=== PATIENT | male | born 1950 | race Caucasian/White ===

== ENCOUNTER → 2018-09-09 16:06 | Outpatient (CLI) | payer OTHER, MEDICARE, SELFPAY ==
[2018-09-09 16:47] LABS: Add Manual Diff / Slide Review NO; Basophils Percent Auto 0.6 % (0-2); Eosinophils Percent Auto 3.3 % (2-4); Hemoglobin 13.8 g/dL (13.5-17.5); Lymphocytes Percent Auto 31.3 % (25-40); Mean Corpuscular HGB Conc 33.7 % (30-36); Mean Corpuscular Hemoglobin 33.1 PG (26-34); Mean Corpuscular Volume 98.2 fL (80-100); Monocytes Percent Auto 6.4 % (3-14); Neutrophils Absolute Auto 3900 /uL (1500-7000); Neutrophils Percent Auto 58.4 % (50-75); Platelet Count 258 X10^3/uL (150-400); Red Blood Cell Count 4.17 X10^6/uL (4.5-5.9); Red Cell Distribution Width 12.6 % (11.6-14.8); White Blood Cell Count 6.7 X10^3/uL (4.5-11.0)
[2018-09-09 17:20] LABS: Blood Urea Nitrogen 21 mg/dL (9-20); Calcium 9.5 mg/dL (8.4-10.2); Carbon Dioxide 27 mmol/L (22-32); Chloride 103 mmol/L (98-107); Estimated Glomerular Filt Rate 50.4 mL/min (>60); Glucose 92 mg/dL (80-110); HEMOLYSIS < 15 (0-50); Potassium 4.6 mmol/L (3.4-5.1); Sodium 141 mmol/L (137-145)
== END ==
PROVIDERS: Visit Provider Orthopaedic Surgery
DX: Z01.812 Encounter for preprocedural laboratory examination (principal); Z01.818 Encounter for other preprocedural examination
CPT/HCPCS: 36415; 80048; 85025; 93005

== ENCOUNTER 2018-09-26 06:11 | Inpatient (IN) | payer OTHER, MEDICARE, SELFPAY ==
[2018-09-20 13:38] VITALS: BMI 26.4
[2018-09-26] VITALS (21 sets, daily range): BP systolic 111–181; BP diastolic 67–106; PULSE 68–93; RESP 13–20; TEMP 35.6–36.8; O2SAT 93–98; BMI 26.4
--- NOTE | 2018-09-26 | DI.RAD.S_ITS ---
PROCEDURE: XR PELVIS 1-2V INDICATIONS: post-op DELMAR TECHNIQUE: 1 view of the lower pelvis acquired. COMPARISON: None. FINDINGS: Bones: Patient is status post left hip arthroplasty, with hardware components in expected positions. The hip joint appears congruent. The visualized bony structures appear intact. Soft tissues: Overlying postoperative changes are noted. No suspicious soft tissue densities. IMPRESSION: Normal alignment after left total hip arthroplasty. Dictated by: Blaise Dc M.D. on 09/26/2018 at 11:39 Approved by: Blaise Dc M.D. on 09/26/2018 at 11:39
[2018-09-26] MEDS: LACTATED RINGERS 1,000 ML 42 ML IV ×2 (06:45→10:03)
[2018-09-26] MEDS: ACETAMINOPHEN 325 MG TABLET 975 MG PO (07:03)
[2018-09-26] MEDS: CELECOXIB 200 MG CAPSULE PO (07:04)
[2018-09-26] MEDS: PREGABALIN 75 MG CAPSULE PO (07:04)
[2018-09-26] MEDS: CEFAZOLIN 2 GM/100 ML FROZ.PIGGY IV ×2 (07:40→16:28)
--- NOTE | 2018-09-26 07:44 | PM.PREOP ---
Pre-operative Note Interval Note History & Physical reviewed/Exam performed by Physician: Yes Changes to H&P: No
[2018-09-26] MEDS: TRANEXAMIC ACID 1,000 MG VIAL 2000 MG INJ (08:15)
[2018-09-26] MEDS: BUPIVACAINE 0.25% W/ EPI VIAL 50 ML INJ (08:20)
--- NOTE | 2018-09-26 08:25 | SUR.OPER ---
Lateral on padded OR bed. Gel axillary roll. Arms secured on padded armboard with pillow supporting top arm. Padded hip positioner braces x4 - anterior and posterior chest and pelvis. Additional gel pad used anterior pelvis. Gel pad under bottom leg from knee to foot and secured with tape over sheet.
--- NOTE | 2018-09-26 09:31 | PM.OP.1 ---
Operative Date/Time/Diagnoses Date of procedure: 09/26/18 Time of procedure: 09:31 Pre-op diagnosis: Left hip degenerative joint disease Post-op diagnosis: same Procedure & Clinicians Procedure: Left total hip arthroplasty (CPT code 51811 with assistant property manager) Same procedure as scheduled: Yes Indications: Patient is an 68-year-old male with severe left hip DJD. The patient has pain with activities and at rest, limited ambulation and activity tolerance, difficulties with ADLs, and failure of conservative treatment. We have discussed the nature of condition, treatment options, risks and benefits, and patient elects to proceed with total hip arthroplasty and gives informed consent. Surgeon: Stephen Lindsay Floor Technician: Jon De La Torre Anesthesia Type: General and Spinal Operative Notes Closure Type: primary Specimen(s): none sent Implants & Drains: Acetabulum: Pichardo [employer] Nephew R3 acetabular component size 54 mm Femoral component: Pich[employer]hew Anthology stem size 8 with high offset Femoral head: 36 mm + 4 Oxinium Estimated Blood Loss (mL): 150 Blood products transfused: none Procedure in detail: After satisfaction induction of anesthetic, and administration of IV antibiotics, the patient was positioned in the lateral decubitus position with all bony prominences well padded and pelvic position secured using a hip lead software development engineer positioning device. Left hip and lower extremity prepped and draped in the usual sterile fashion, 1st dose of intravenous tranexamic acid was administered, then a longitudinal incision was created centered over the greater trochanter and carried sharply through the skin and subcutaneous tissues down to the fascia cindy which was divided longitudinally and retracted with a Charnley retractor. External rotators visualize, cut, tagged, and retracted posteriorly, then the capsule was cut in a T-type fashion with the corners tagged and retracted. Hip was dislocated and femoral neck cut made according to preoperative templating. Acetabular retractors then placed, and the acetabular labrum and osteophytes were excised. The acetabulum was then sequentially reamed to 53 mm with an excellent circumferential ream and fit with the trial. The trial component was removed and a permanent size 54 mm Pichardo [employer] Nephew R3 acetabular component was selected, positioned, and impacted with satisfactory position and fixation achieved. Permanent liner was then inserted with the elevated lip directed posteriorly. Soft tissue then removed off the lateral femoral neck in the lateral neck was entered using a box osteotome. T-handled reamers placed down the canal followed by sequential broaching to 8 with the final broach left in place for trial reduction which demonstrated very good leg length, range of motion, and stability characteristics with a 36 mm +0 trial ball. Another trial was performed with a +4 ball which yielded excellent stability characteristics. The trial and broach were removed, and a permanent size 8 high offset Pichardo [employer] Nephew Anthology stem was selected and inserted with excellent position and fixation achieved. Another trial reduction yielded the above characteristics so the trial ball was exchanged for a permanent 36 mm + 4 Oxinium ball. The hip was irrigated and reduced and excellent leg length range of motion and stability characteristics were achieved and maintained. Periarticular tissues were infiltrated with Marcaine. The hip was copiously irrigated, and the capsule repaired with #2 Ethibond, and the piriformis was repaired back to the greater trochanter with the same. Fascia cindy closed with interrupted #1 Ethibond sutures, and the subcutaneous tissues were closed in 2 layers of 0 Vicryl and 2 0 Vicryl. Skin was closed with tiffanie and sterile dressings applied. Second dose of tranexamic acid was administered intravenously, and the anesthetic was terminated. Complications: none Condition: stable Disposition: PACU Plan for aftercare: Patient will be admitted to the acute care [facility], and anticipate discharge on postop day 1 with follow-up in office in 10-14 days. Outpatient physical therapy will be arranged and patient will continue to observe posterior hip precautions. Patient will continue use of postoperative Lovenox for 10 days postop.
--- NOTE | 2018-09-26 09:34 | P.OP_ITS ---
Operative Date/Time/Diagnoses Date of procedure: 09/26/18 Time of procedure: 09:31 Pre-op diagnosis: Left hip degenerative joint disease Post-op diagnosis: same Procedure & Clinicians Procedure: Left total hip arthroplasty (CPT code 43858 with surgical first assistant) Same procedure as scheduled: Yes Indications: Patient is an 68-year-old male with severe left hip DJD. The patient has pain with activities and at rest, limited ambulation and activity tolerance, difficulties with ADLs, and failure of conservative treatment. We have discussed the nature of condition, treatment options, risks and benefits, and patient elects to proceed with total hip arthroplasty and gives informed consent. Surgeon: Stephen Lindsay Chief Operating Engineer: Jon De La Torre Anesthesia Type: General and Spinal Operative Notes Closure Type: primary Specimen(s): none sent Implants & Drains: Acetabulum: Pichardo [employer] Nephew R3 acetabular component size 54 mm Femoral component: Pichardo [employer] Nephew Anthology stem size 8 with high offset Femoral head: 36 mm + 4 Oxinium Estimated Blood Loss (mL): 150 Blood products transfused: none Procedure in detail: After satisfaction induction of anesthetic, and administration of IV antibiotics, the patient was positioned in the lateral decubitus position with all bony prominences well padded and pelvic position secured using a hip scheduling assistant positioning device. Left hip and lower extremity prepped and draped in the usual sterile fashion, 1st dose of intravenous tranexamic acid was administered, then a longitudinal incision was created centered over the greater trochanter and carried sharply through the skin and subcutaneous tissues down to the fascia cindy which was divided longitudinally and retracted with a Charnley retractor. External rotators visualize, cut, tagged, and retracted posteriorly, then the capsule was cut in a T-type fashion with the corners tagged and retracted. Hip was dislocated and femoral neck cut made according to preoperative templating. Acetabular retractors then placed, and the acetabular labrum and osteophytes were excised. The acetabulum was then sequentially reamed to 53 mm with an excellent circumferential ream and fit with the trial. The trial component was removed and a permanent size 54 mm Pichardo and Nephew R3 acetabular component was selected, positioned, and impacted with satisfactory position and fixation achieved. Permanent liner was then inserted with the elevated lip directed posteriorly. Soft tissue then removed off the lateral femoral neck in the lateral neck was entered using a box osteotome. T-handled reamers placed down the canal followed by sequential broaching to 8 with the final broach left in place for trial reduction which demonstrated very good leg length, range of motion, and stability characteristics with a 36 mm +0 trial ball. Another trial was performed with a + 4 ball which yielded excellent stability characteristics. The trial and broach were removed, and a permanent size 8 high offset Pichardo [employer] Nephew Anthology stem was selected and inserted with excellent position and fixation achieved. Another trial reduction yielded the above characteristics so the trial ball was exchanged for a permanent 36 mm + 4 Oxinium ball. The hip was irrigated and reduced and excellent leg length range of motion and stability characteristics were achieved and maintained. Periarticular tissues were infiltrated with Marcaine. The hip was copiously irrigated, and the capsule repaired with #2 Ethibond, and the piriformis was repaired back to the greater trochanter with the same. Fascia cindy closed with interrupted #1 Ethibond sutures, and the subcutaneous tissues were closed in 2 layers of 0 Vicryl and 2 0 Vicryl. Skin was closed with tiffanie and sterile dressings applied. Second dose of tranexamic acid was administered intravenously, and the anesthetic was terminated. Complications: none Condition: stable Disposition: PACU Plan for aftercare: Patient will be admitted to the acute care perze, and anticipate discharge on postop day 1 with follow-up in office in 10-14 days. Outpatient physical therapy will be arranged and patient will continue to observe posterior hip precautions. Patient will continue use of postoperative Lovenox for 10 days postop.
[2018-09-26] MEDS: LACTATED RINGERS 1,000 ML 125 ML IV (11:04)
--- NOTE | 2018-09-26 11:22 | PC.NURSE ---
Addendum entered by Amanda Lopez R.N. 09/26/18 14:59: BP has been running hypertensive. Notified Dr Lindsay, we will monitor unless above 160/110. Original Note: Admit Arrived to room @ 1030, Oriented Pt and to room and call light system. Discussed POC and pain management goals. Snacking without nausea. IVf infusing and dressing to L hip CDI with ice in place. Able to wiggle toes, not lift off of bed, better as time goes on
[2018-09-26] MEDS: ONDANSETRON 4 MG ODT PO (16:15)
--- NOTE | 2018-09-26 17:57 | PC.NURSE ---
Post-op note: Flavio ambulated with PT in hallway and in room, sat in recliner for meal. Reported some nausea after ambulating, SL Zofran given. Voided in BR toilet unmeasured. After meal he reported nausea returned & he had 150 ml emesis. Able to void 100 ml urine, then assisted back into bed. Abdomen distended, bladder scan = >999 ml. Due to large amt of urine in bladder. Standing order written for straight cath, but because straight cath kit only has 1000ml collection bag, I placed brandon catheter with 2000 ml bag. Pt tolerated procedure well. >1250 immediate dilute yellow urine return in collection bag & still draining. Will leave in place at this point. Pt reports he did not feel urge to void but said I don't feel anymore. I talked to & his about catheter & orders, they agreed we should leave brandon in place until spinal resolves as patient had no feeling of needing to urinate when his bladder was full. Supportive visiting, now gone, saying she would return in the AM.
--- NOTE | 2018-09-26 18:35 | PT.IIE ---
Current Diagnoses Unilateral primary osteoarthritis, left hip (09/26/18) Surgery Performed Operation Date: 09/26/18 07:45 Actual Procedures p Total Hip Arthroplasty(Left) - Stephen Lindsay MD Surgical History (Last Updated 09/20/18 @ 14:12 by Paige Bob RN) H/O vasectomy (Acute) Status post Mohs surgery (Acute) Medical History (Last Updated 09/20/18 @ 14:12 by Paige Bob RN) Achilles rupture, left (Acute) Arthritis (Acute) Failed tendon repair (Acute) Skin cancer (Acute ~2015) Tibia/fibula fracture (Acute) Physical Therapy Inpatient Evaluation/Re-Eval M1 PT/OT-IP Prior Functional Status Start: 09/26/18 18:14 Freq: NEEDED Status: Active Protocol: Document 09/26/18 15:15 (Rec: 09/26/18 18:34 [id number]) Medical Review Prior Functional Status Medical History Reviewed Yes Communication No deficits noted Mobility and Gait Pt is an independent ambulator at home and community without using AD Activities of Daily Living and IADL's Pt is independent for all ADLs and IADLs without using AD. Social History Household Members spouse Living Arrangements House Number of Floors (Floors) Two Floors Number of Stairs To Enter/Railing? 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 Pt will primarily stay on the main floor but the walk in shower is located on the 2nd floor only. 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 Pt is still working and he states it's a sedentary job and he drives everyday. Pt expects to return to work once he is medically stable . He wants to cont his post op rehab at a outpatient clinic in [place]. M2 PT-IP Current Condition Start: 09/26/18 18:14 Freq: NEEDED Status: Active Protocol: Document 09/26/18 15:15 (Rec: 09/26/18 18:34 [id number]) Physical Therapy Current Condition Current Condition Evaluation Date 09/26/18 Treatment Diagnosis L DELMAR post approach, difficulty in walking, generalized muscle weakness Onset Date 09/26/18 Precautions Posterior Hip Precautions No Hip Flexion > 90 degrees No Hip Internal Rotation No Hip Adduction Weight Bearing Status Weight Bearing Status Weight Bear as Tolerated M3 PT-IP Subjective Start: 09/26/18 18:14 Freq: NEEDED Status: Active Protocol: Document 09/26/18 15:15 (Rec: 09/26/18 18:34 [id number]) Subjective Physical Therapy Visit Type Type Initial Evaluation Visit Start Time 15:15 Visit Stop Time 15:45 Total Visit Minutes 30 Notes Pt agreeable to mobilize with PT. Denies pain. Number of POCKET CLOSER Visits 0 Physical Therapy Visit Comments Patient Comments I dont have any pain at all. Patient Goals To return home with his to return to work once medically stable Therapy Pain Assessment Pain Present Pain Present Denied Pain M4 PT-IP Mobility and Gait Start: 09/26/18 18:14 Freq: NEEDED Status: Active Protocol: Document 09/26/18 15:15 (Rec: 09/26/18 18:34 [id number]) PT-Bed Mobility Assessment Supine to Sit Supine to Sit Standby Assistance Head of Bed Elevated Bedrails Sit to Supine Sit to Supine Standby Assistance Bedrails Scooting Scooting to Edge of Bed Standby Assistance Scooting Up and Down in Bed Standby Assistance PT-Transfer Assessment Sit to and From Stand Sit to and from Stand Standby Assistance 1 Person Assistance Use of Upper Extremities Equipment Transfer Assistive Device Gait Belt Front Wheeled Walker Transfers Transfer Destination Bed Chair Toilet Transfer Technique Stand Step Pivot Transfer Ability Level of Assist Standby Assistance Comments Mobility Comments Pt education on post op post hip precautions. Pt performed very well on overall bed mobility and transfer activities with SBA 1 pa and FWW. Pt did not show signs of LOB and acute distress. He was able to use proper hand and feet placements on FWW and surface for sit <>stand activities. Gait Assessment Gait Gait Assistance Required: Standby Assistance 1 Person Assist Distance (Feet) 100 Able to Maintain Weight Bearing Status Yes During Gait Assistive Devices Assistive Device Gait Belt Front Wheeled Walker Gait Deviations General Gait Pattern Antalgic Decreased Stride Length Decreased Feet Clearance Step-to Gait Factors Limiting Gait Function Factors Limiting Gait Function Decreased Activity Tolerance Decreased Strength Limited Range of Motion Pain Comments Gait Comments Pt began to amb with step to pattern with FWW SBA. He then amb with step through pattern after 20 feet. Pt amb from EOB to hallway and back bedside chair with SBA FWW. Pt demonstrated very slight antalgic gait since he is aware of his WBAT status and previous pre op PT. Pt presents steady gait and no signs of LOB and acute distress. Stair Climbing Assessment Evaluation Level of Assist On Stairs Contact Guard Assistance Devices Stair Climbing Assistive Devices Left Railing Right Railing Technique/Endurance Stair Climbing Direction Ascend and Descend Stair Climbing Technique Step to Step Number of Steps Climbed 3 Query Text: Stair Climbing Set # Repetitions (reps) 2 Comments Stair Climbing Comments Pt education on step to pattern with going up with good side and down with injured side. Pt demonstrated good understanding and safe step to pattern with B rails. no signs of LOB. PT-Balance Assessment Sitting Balance and Reactions Static Sitting Balance Ability Normal Dynamic Sitting Balance Ability Normal Standing Balance and Reactions Static Standing Balance Ability Good Dynamic Standing Balance Ability Good M5 PT-IP Objective Assessments Start: 09/26/18 18:14 Freq: NEEDED Status: Active Protocol: Document 09/26/18 15:15 (Rec: 09/26/18 18:34 [id number]) Orientation Orientation/Cognition Level of Alertness Alert Orientation Name Age Birthday Month Date Year Day of Week Place Situation Language Function Ability No Deficits Noted Safety Awareness Understands Safety Issues Memory Description No Deficits Noted Gross Range of Motion Upper Extremity ROM Assessment Within Functional Limits Lower Extremity ROM Assessment Left Impaired Strength Upper Extremity Strength Assessment Within Functional Limits Lower Extremity Strength Assessment Left Impaired Comments Strength Comments 4/5 grossly on LLE MMT Coordination Assessment Gross Coordination Gross Coordination WNL Sensation Assessment Sensation Gross Sensation WNL M6 PT-IP Treatment Start: 09/26/18 18:14 Freq: NEEDED Status: Active Protocol: Document 09/26/18 15:15 (Rec: 09/26/18 18:34 [id number]) Physical Therapy Treatment Exercises Exercises Ankle Pumps Gluteal Sets Quad Sets Heel Slides Education Education Provided Precautions Weight Bearing Status Post-Op Packet Safety M7 PT-IP Assessment and Plan Start: 09/26/18 18:14 Freq: NEEDED Status: Active Protocol: Document 09/26/18 15:15 (Rec: 09/26/18 18:34 [id number]) PT Summary Assessment and Plan Potential Rehabilitation Potential Excellent Status of Condition at Evaluation Stable Summary Impairments Pain ROM Strength Transfers Gait Activity Tolerance Assessment Summary Pt is a very pleasant 68 yo male s/p L DELMAR post approach post op day 1. Pt demonstrates a very good understanding of overall hip precautions and safe transfer techniques. Pt is able to climb stair 3 steps x 2 sets and amb >100 feet with FWW SBA today. Pt denies pain during session. However, pt has to be able to negotiate 14 steps prior to d/c home due to walk in shower located on 2nd floor. Goals Bed Mobility Goal Independent Transfer Goal Independent Front Wheeled Walker Gait Goal Independent Front Wheel Walker Gait Distance 200 Other Goals stair climbing 14 steps in total independently with B rails Days to Meet Goals 3 Frequency of Treatment Frequency Of Treatment Twice a Day Treatment Plan Physical Therapy Treatment Plan Bed Mobility Training Transfer Training Gait Training Therapeutic Exercise Balance Retraining Post Op Education Discharge Planning Hot or Cold Pack Other Recommendations and Next Treatment transfer, gait and stair Focus training as nura review precautions Recommendations To Nursing Amount of Assist Needed Standby Assistance 1 Person Assist Discharge Recommendations PT Discharge Recommendations Home Outpatient PT
[2018-09-26] MEDS: METOCLOPRAMIDE 10 MG/2 ML INJ IV (20:49)
[2018-09-27] MEDS: CEFAZOLIN 2 GM/100 ML FROZ.PIGGY IV (00:16)
--- NOTE | 2018-09-27 00:42 | PC.NURSE ---
Automatic Buffer Note: 0015: Awake, resting in bed. Pt states he has 0/10 pain at this time. IV in place in rt hand. Mcfarland catheter patent, with clear jeff urine. Bulky dressing to lt hip is cdi. Pt declines SCDs. He requests a break from ice to lt hip. Pt doing ankle waving.
[2018-09-27 03:25] VITALS: BP 142/73; PULSE 75; RESP 16; TEMP 36.5; O2SAT 96
--- NOTE | 2018-09-27 06:08 | PC.NURSE ---
Pt reports no pain. Mcfarland catheter removed at 0600 with no issues
[2018-09-27 06:38] LABS: Hematocrit 36.3 % (41-53); Hemoglobin 12.5 g/dL (13.5-17.5)
[2018-09-27 07:35] VITALS: BP 143/95; PULSE 86; RESP 16; O2SAT 93
[2018-09-27] MEDS: ACETAMINOPHEN 325 MG TABLET 975 MG PO (08:04)
--- NOTE | 2018-09-27 08:06 | PM.DS.1 ---
History of Present Illness Date Patient Seen: 09/27/18 Time Patient Seen: 08:06 Chief complaint: left hip [id number] Narrative: Patient is an 68-year-old male with severe left hip DJD. The patient has pain with activities and at rest, limited ambulation and activity tolerance, difficulties with ADLs, and failure of conservative treatment. We have discussed the nature of condition, treatment options, risks and benefits, and patient elects to proceed with total hip arthroplasty and gives informed consent. Discharge Providers Date of admission: 09/26/18 06:11 Primary care physician: Frankie Melendez MD Consults: 09/26/18 10:52 Consult to Discharge Planning Routine Comment: Consult to Physical Therapy Evaluate & Treat Comment: Physician Instructions: post op DELMAR protocol Consult to Respiratory Therapy Evaluate & Treat Comment: Physician Instructions: Evaluate and treat 09/26/18 11:45 Consult to Pastoral Services Routine Comment: pre op requested. thank you Discharge provider: Kimberly Snell PA-C Discharge Date: 09/27/18 Summary Discharge Diagnosis: s/p left total hip arthroplasty Hospital Course: Flavio admitted for left total hip arthroplasty with Dr. Lindsay, and he consented to procedure. On POD #1 patient was ready for DC home. He was eating and voiding without difficulty or assistance. He has been up ambulating with PT. He has outpatient therapy scheduled. He has his home medications. Status at Discharge Functional status at discharge: uses cane/walker Exam Vital Signs (past 8 hours): - 09/27/18 03:25 Temperature 97.7 F Pulse Rate 75 Respiratory Rate 16 Blood Pressure 142/73 H Pulse Oximetry 96 Oxygen Delivery Method Room Air Narrative Exam Narrative: Patient lying in bed in NAD. He is alert and oriented X3. Dressing on left hip is CDI. Calves are soft, compressible, and nontender bilaterally. Pulses are symmetrical. His pain was well controlled last night. Objective Labs Result Diagrams: 09/27/18 06:20 Labs: Laboratory Results - last 24 hr 09/27/18 06:20 Hgb 12.5 L Hct 36.3 L Discharge Plan Discharge Plan Patient Disposition: Home Discharge comment: d/c after PT Discharge Med Rec/Prescriptions Prescriptions: New enoxaparin [Lovenox] 40 mg/0.4 mL Syringe 40 mg subcut DAILY 9 Days RF: 0 hydroxyzine pamoate 25 mg Capsule 25 mg PO Q6HR PRN (Reason: Spasms) Qty: 0 RF: 0 oxycodone 5 mg Tablet 5 mg PO Q3HR PRN (Reason: Pain, Severe (7-10)) Qty: 0 RF: 0 Discontinued ibuprofen [Advil] 200 mg Tablet 4 tab PO DAILY RF: 0 Follow up/Referrals: Frankie Melendez MD [Primary Care Provider] - Stephen Lindsay MD [Physician] - Provider Discharge Instructions Diet: Diet as Tolerated Activity: Weightbearing as tolerated, use walker until cleared by PT. Follow posterior hip precautions Cold/Heat Therapy: Apply ice 20 minutes at a time to surgical site at least hourly while awake Skin/Wound/Dressing Care Report to your healthcare provider any signs of infection, such as:: chills, fever, night sweats, increased pain, unusual drainage and unusual redness Dressing: Keep dressing clean, dry, and intact. Cover with saran wrap to shower. Visit Report/Discharge Packet Instructions: DI for Hip Replacement Visit Report Forms: Stroke Signs & Symptoms Discharge Data Primary Care Provider: Frankie Melendez Attending Provider: Stephen Lindsay Admit Date/Time: 09/26/18 06:11
[2018-09-27] MEDS: ENOXAPARIN 40 MG/0.4 ML SYRINGE SUBCUT (09:28)
--- NOTE | 2018-09-27 10:48 | PC.NURSE ---
Pt showered and dressing was changed to left hip. Prema intact and without drainage. Spoke to Pt about hip precautions, increasing fluid intake and considering a stool softener to prevent constipation, keeping wound clean and dry, and discharge medications. Pt denies further questions and is waiting for spouse to arrive to take him home.
--- NOTE | 2018-09-27 10:50 | PT.IPTN ---
Current Diagnoses Unilateral primary osteoarthritis, left hip (09/26/18) Surgery Performed Operation Date: 09/26/18 07:45 Actual Procedures p Total Hip Arthroplasty(Left) - Stephen Lindsay MD Physical Therapy Treatment Note M2 PT-IP Current Condition Start: 09/26/18 18:14 Freq: NEEDED Status: Active Protocol: Document 09/26/18 15:15 HH (Rec: 09/26/18 18:34 HH [id number]) Physical Therapy Current Condition Current Condition Evaluation Date 09/26/18 Treatment Diagnosis L DELMAR post approach, difficulty in walking, generalized muscle weakness Onset Date 09/26/18 Precautions Posterior Hip Precautions No Hip Flexion > 90 degrees No Hip Internal Rotation No Hip Adduction Weight Bearing Status Weight Bearing Status Weight Bear as Tolerated M3 PT-IP Subjective Start: 09/26/18 18:14 Freq: NEEDED Status: Active Protocol: Document 09/27/18 08:45 CLB (Rec: 09/27/18 10:50 CLB [id number]) Subjective Physical Therapy Visit Type Type Treatment Note Visit Start Time 08:45 Visit Stop Time 09:10 Total Visit Minutes 25 Number of CARTON STENCILER Visits 1 Physical Therapy Visit Comments Patient Comments Pt agreeable to do therapy. Therapy Pain Assessment Pain When Pain Assessed During Mobility Pain Present Pain Present Pain Reported Location Left Hip Intensity 2 Scale Used Numeric (1 - 10) M4 PT-IP Mobility and Gait Start: 09/26/18 18:14 Freq: NEEDED Status: Active Protocol: Document 09/27/18 08:45 CLB (Rec: 09/27/18 10:50 CLB [id number]) PT-Bed Mobility Assessment Supine to Sit Supine to Sit Standby Assistance Scooting Scooting to Edge of Bed Standby Assistance PT-Transfer Assessment Sit to and From Stand Sit to and from Stand Standby Assistance 1 Person Assistance Use of Upper Extremities Equipment Transfer Assistive Device Gait Belt Front Wheeled Walker Transfers Transfer Destination Bed Chair Toilet Transfer Technique Stand Step Pivot Transfer Ability Level of Assist Standby Assistance Comments Mobility Comments Pt able to perform bed mobility safely recalling all Posterior DELMAR precautions. Gait Assessment Gait Gait Assistance Required: Standby Assistance 1 Person Assist Distance (Feet) 150 Able to Maintain Weight Bearing Status Yes During Gait Assistive Devices Assistive Device Gait Belt Front Wheeled Walker Gait Deviations General Gait Pattern Antalgic Decreased Stride Length Decreased Feet Clearance Factors Limiting Gait Function Factors Limiting Gait Function Decreased Activity Tolerance Decreased Strength Limited Range of Motion Pain Comments Gait Comments Pt able to ambulate ~150ft SBA /FWW/GB with step through gait pattern with pain increasing to 2/10. Stair Climbing Assessment Evaluation Level of Assist On Stairs Standby Assistance 1 Person Assistance Devices Stair Climbing Assistive Devices Left Railing Right Railing Technique/Endurance Stair Climbing Direction Ascend and Descend Stair Climbing Technique Step to Step Number of Steps Climbed 3 Query Text: Stair Climbing Set # Repetitions (reps) 4 Comments Stair Climbing Comments Pt safely performed stairs using step to demonstrating good safety awareness. M5 PT-IP Objective Assessments Start: 09/26/18 18:14 Freq: NEEDED Status: Active Protocol: Document 09/26/18 15:15 HH (Rec: 09/26/18 18:34 HH [id number]) Orientation Orientation/Cognition Level of Alertness Alert Orientation Name Age Birthday Month Date Year Day of Week Place Situation Language Function Ability No Deficits Noted Safety Awareness Understands Safety Issues Memory Description No Deficits Noted Gross Range of Motion Upper Extremity ROM Assessment Within Functional Limits Lower Extremity ROM Assessment Left Impaired Strength Upper Extremity Strength Assessment Within Functional Limits Lower Extremity Strength Assessment Left Impaired Comments Strength Comments 4/5 grossly on LLE MMT Coordination Assessment Gross Coordination Gross Coordination WNL Sensation Assessment Sensation Gross Sensation WNL M6 PT-IP Treatment Start: 09/26/18 18:14 Freq: NEEDED Status: Active Protocol: Document 09/27/18 08:45 CLB (Rec: 09/27/18 10:50 CLB [id number]) Physical Therapy Treatment Exercises Exercises Ankle Pumps Gluteal Sets Quad Sets Heel Slides Supine Hip Abduction Education Education Provided Precautions Weight Bearing Status Post-Op Packet Safety M7 PT-IP Assessment and Plan Start: 09/26/18 18:14 Freq: NEEDED Status: Active Protocol: Document 09/27/18 08:45 CLB (Rec: 09/27/18 10:50 CLB [id number]) PT Summary Assessment and Plan Summary Assessment Summary Pt is SBA for all mobility, bed, gait and stairs with recall 3/3 post. DELMAR precautions. Pts will assist pt at home. Pt seems able to d/c home with assist when medically stable. Goals Bed Mobility Goal Independent Transfer Goal Independent Front Wheeled Walker Gait Goal Independent Front Wheel Walker Gait Distance 200 Other Goals stair climbing 14 steps in total independently with B rails Days to Meet Goals 3 Frequency of Treatment Frequency Of Treatment Twice a Day Recommendations To Nursing Amount of Assist Needed Standby Assistance 1 Person Assist Discharge Recommendations PT Discharge Recommendations Home Outpatient PT
--- NOTE | 2018-09-27 11:07 | CM.DANOTE ---
Discharge Planning/Care Management CM Discharge Assessment Start: 09/27/18 11:04 Freq: Status: Active Protocol: Document 09/27/18 11:04 (Rec: 09/27/18 11:07 [id number]) Discharge Planning Assessment Assigned World Language Teacher MADIE Cobb Advance Directives? No Advance Directives on File No History Provided By Patient Medical Record Prior Living Arrangements House Comment Resides in [facility]. Household Members spouse Type of transporation used prior to Drives own vehicle admit Independent with ADL's Yes Is patient alert and oriented? Yes Caregiver for Another No Patient/Family Preference OP PT Therapy Barriers to Discharge No Discharge Plan Home Community Services Physical Therapy Transportation Arrangement Spouse/Becca to provide. Referrals Initiated None needed Additional Comment Payer is [employer] and Medicare. PCP is Frankie Melendez. Per NISHANT Snell patient to discharge home today pending PT eval. Met with patient: patient was agreeable to discharge home and had no needs or concerns at this time. Inpatient Status as of 09/26/18 Whiteboard Updated in Patient Room with Yes name and ext. # of World Language Teacher Please Provide Date Initial DC 09/27/18 Assessment Was Performed Pre-Anesthesia Assessment Start: 09/08/18 10:46 Freq: Status: Active Protocol: Document 09/20/18 13:38 CAB (Rec: 09/20/18 14:45 CAB [id number]) Pre-Anesthesia Assessment Patient Information Reviewed Via Phone Assessment Assessment Completed With Patient Primary Care Provider Frankie Melendez Seen Specialist in Last 12 Months Yes Specialist Seen Orthopedist Primary Language Italian Financial Counselor Required No Height 182.88 cm Weight 88.451 kg Body Mass Index (BMI) 26.4 Hearing Ability Normal Visual Assist Contacts Glasses Dentition Type Teeth, Natural Present Teeth, Missing Barriers to Learning None Other Aids No Hx Anesthesia Reactions No Hx Family Anesthesia Reaction No Hx Malignant Hyperthermia No Hx Blood Transfusions No Anesthesia Review Requested No Unit Controller No alcohol intake current alcohol intake frequency 0-2 drinks per day Smoking Status Never smoker Substance Use Type marijuana Comment Pt advised not to smoke 24 hours prior to surgery Pain Present Pain Reported Musculoskeletal Symptoms Abnormal Gait Difficulty Walking Joint Pain History of Falling (Recent or History of No ) Patient is completely paralyzed or No completely immobile Mental Status Oriented to own ability Is patient on oxygen? No Does patient have KATZ/SOB No Hx Sleep Apnea No Currently Taking a Beta Madelyn No Can You Climb a Flight of Stairs Without Yes SOB Hx Chest Pain No Hx SOB No Hx Syncope or Dizziness No Anti-Coagulant Therapy No Has a Medical Social Consultant No Cardiac Testing No Hx Pacemaker/ICD No Pacemaker Rep Required? No Cardiac Clearance Received Not Applicable Diet Type At Home Regular dysphagia No Urinary Catheter Present No Hx Urinary Self Catheterization No Diabetes No Hx Drug Resistant Organism No Presence of External or Internal Medical No Devices Have you traveled outside the [facility] in the last 30 days? Marital Status Lives With spouse Prior Living Arrangements House Number of Floors (Floors) Two Floors Number of Stairs To Enter/Railing? two steps, railing present Support System Child/Children Friend(s) Spouse Does the Patient Have Assistance After Yes Surgery Patient Discharge Plan Description Return Home Comment Pt advised may go home the same day Feels Safe in Current Environment Yes Been Physically Hurt or Threatened By a No Person in Current Environment Do you have thoughts of harming yourself None or others? Are you currently considering suicide? No Do you have a plan to hurt yourself or No Plan others? Do You Have Any Spiritual Beliefs That No May Affect Your HC Choices? Do You Have Any Cultural Practices That No May Affect Your HC Choices? Spiritual Referral In-House Polisher Implant Comment Sikh Who Can We Speak to About Patient's Care Family, friends Identifying Code for Release of Patient Declines to issue Information Health Care Proxy/Next of Kin Becca () Health Care Proxy Emergency Contact Name Becca () Emergency Contact Advance Directives? No: Declines further information Power of Emergency Telecommunications Dispatcher Yes Power of Emergency Telecommunications Dispatcher Name Becca () Power of Emergency Telecommunications Dispatcher PAC Instructions Durable medical equipment Medications to take/avoid Nasal antibiotic No ETOH/petroleum product on skin DOS NPO Post-op transportation Pre-surgical wash Sensory aids Sturdy shoes/comfortable clothes Do not bring valuables and remove jewelry
--- NOTE | 2018-09-27 11:49 | PC.NURSE ---
Pt ready for discharge home and spouse is at the bedside to drive Pt home. Reviewed discharge instructions with Pt and Spouse-discussed d/c meds, time of last dose, reviewed lovenox injection procedure (Pt was able to self-administer his injection this morning), and discussed posterior hip precautions. Encouraged increased fluid intake to prevent constipation. Pt and Spouse denied further questions and are ready to be discharged home. Pt out via w/c by RN to POV with Spouse and all belongings.
== END 2018-09-27 12:06 | disposition home or self-care (01) | DRG 470 ==
PROVIDERS: Admitting Provider Orthopaedic Surgery; PCP Family Medicine; Visit Provider Orthopaedic Surgery
PROC: 0SRB0JZ Replacement of Left Hip Joint with Synthetic Substitute, Open Approach (ICD-10-PCS; CPT 27130; principal; 2018-09-26 07:45)
DX: M16.12 Unilateral primary osteoarthritis, left hip (principal)
CPT/HCPCS: 36415; 72170; 85014; 85018; 94762; 97110; 97116; 97161; 97530; C1776; J0690; J1200; J1650; J2250; J2274; J2405; J2704; J2765; J3010